=== PATIENT | female | born 1985 | race African-American/Black ===

== ENCOUNTER 2018-01-30 08:29 | Outpatient (CLI) | payer OTHER ==
--- NOTE | 2018-01-30 11:15 | Mammography Report ---
Ultrasound guided left breast biopsy, marker placement, mammogram: Patient presents with prior ultrasounds demonstrating a 6 mm hypoechoic nodule near the skin in the superior breast. The patient is breast-feeding. The skin was cleansed and percent lidocaine used for local anesthesia. An 18-gauge needle was initially placed into the lesion under ultrasound guidance without any change or significant aspirate. A 13-gauge -gauge guide was then placed through which a 14-gauge [employer]quee biopsy device was utilized to take several specimens and ultrasound guidance. A marker was left in place. The entrance site was bandaged. A one view lateral mammogram was then obtained to confirm marker position. There were no patient complications encountered. The patient was given followup instructions and discharged.
--- NOTE | 2018-01-30 11:31 | History and Physical Report ---
History of Present Illness Date of examination: 01/30/18 Chief complaint: u/s nodule
--- NOTE | 2018-01-30 11:32 | Procedure Note ---
Date of procedure: 01/30/18 Pre-op diagnosis: lt. breast nodule Post-op diagnosis: same Procedure: u/s guided bx Findings: solid tissue Anesthesia: local Surgeon: ASHANTI HO Estimated blood loss: none Pathology: list (lt breast tissue) Specimen disposition: to lab Condition: stable Disposition: same day
== END 2018-01-30 08:30 | disposition home or self-care (01) ==
LOC: SPVWC 08:29
PROVIDERS: ATTEND Surgery
DX: N60.22 Fibroadenosis of left breast (principal); R92.0 Mammographic microcalcification found on diagnostic imaging of breast; N61.0 Mastitis without abscess
CPT/HCPCS: 19083; 77065; 88305; 88342; A4648